=== PATIENT | female | born 1995 | race Hispanic/Latino ===

== ENCOUNTER 2018-04-30 09:30 | Emergency (ER) | payer BC ==
[~2018-04-30] VITALS: Ht 162.6 cm; Wt 54.4 kg
--- OUTSIDE RECORDS SUMMARY | 2018-04-30 09:32 | XMS REPORT | Clinical Summary ---
Author Author [facility] Address Unknown Phone Unavailable Care Team Providers Care Transition Of Care Specialist Name Role Phone Asked, No Pcp PCP Unavailable Allergies No Known Allergies Medications End Date Status Medication Sig Dispensed Refills Start Date Active acetaminophen-codeine Take 1 tablet 0 (TYLENOL WITH CODEINE #3) by mouth 300-30 mg per tablet every 6 (six) hours as needed for moderate pain. Active clonAZEPAM (KlonoPIN) 0.5 Take 0.5 mg 0 MG tablet by mouth 2 (two) times a day. Active mirtazapine (REMERON Take 15 mg by 0 SCOTTIE-TAB) 15 MG mouth disintegrating tablet nightly. 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 Last Filed Vital Signs Not on file Plan of Treatment Health Maintenance Due Date Last Done Comments MMR VACCINES (1 of - 1995 Standard series) VARICELLA VACCINES (2007 2 - 2-dose adolescent series) CHLAMYDIA SCREENING 2010 CERVICAL CANCER SCREENING 2015 INFLUENZA VACCINE 01/11/2018 HEPATITIS B VACCINES Aged Out No longer eligible based on patient's age to complete this topic IPV VACCINES Aged Out No longer eligible based on patient's age to complete this topic MENINGOCOCCAL VACCINE Aged Out No longer eligible based on patient's age to complete this topic Results Not on fileafter 04/29/2017 Insurance Payer Benefit Subscriber ID Type Phone Address Plan / Group BCBS BCBS xxxxxxxxxxxx PPO CHOICE PPO/ARTURO [employer] PPO Advance Directives Patient has advance care planning documents, and code status on file. For more i nformation, please contact: Jovany Jordan [address] [place] [address] Date Inactivated Comments Code Status Date Activated 09/04/2016 8:25 PM Full Code 09/04/2016 12:05 AM Code Status decision reached by: Patient
== END 2018-04-30 10:13 | disposition home or self-care (01) ==
LOC: FSED 09:30
DX: H57.12 Ocular pain, left eye (principal); S05.02XA Injury of conjunctiva and corneal abrasion without foreign body, left eye, initial encounter; W22.8XXA Striking against or struck by other objects, initial encounter; Y92.008 Other place in unspecified non-institutional (private) residence as the place of occurrence of the external cause
CPT/HCPCS: 99283